=== PATIENT | male | born 1960 | race Caucasian/White ===

== ENCOUNTER 2022-05-07 15:41 | Emergency (ER) | payer BC, SELFPAY ==
[2022-05-07] VITALS (18 sets, daily range): BP systolic 133–149; BP diastolic 75–89; PULSE 69–104; TEMP 36.4; O2SAT 93–97; BMI 32.0
--- NOTE | 2022-05-07 16:06 | ED.NURSE ---
Bladder scan done, max read was ~60 mLs.
--- NOTE | 2022-05-07 16:57 | CRLHL7_ITS ---
For Patients: As a result of the Century Cures Act, medical imaging exams and procedure reports are released immediately into your electronic medical record. You may view this report before your referring provider. If you have questions, please contact your health care provider. INDICATION: Bilateral hydronephrosis TECHNIQUE: CT abdomen and pelvis acquired with 99 cc Isovue 370 IV contrast according to the renal protocol. COMPARISON: None. FINDINGS: Lower chest: The visualized lower lungs are aerated. No pleural or pericardial effusion. ABDOMEN: Liver: Normal enhancement. No focal suspicious hepatic lesions. Gallbladder and biliary: Normal gallbladder without radiopaque stone. Normal caliber bile ducts. Spleen: Normal size and enhancement. Pancreas: Normal enhancement without peripancreatic inflammatory changes or ductal dilatation. Adrenal glands: Normal adrenal glands. Kidneys and ureters: Normal enhancement. No radio-opaque calculi. No hydroureteronephrosis. Bilateral peripelvic cysts. Bilateral renal cysts. Suboptimal opacification of the distal renal collecting systems bilaterally however there are no abnormal areas of urothelial wall thickening or enhancement. GI tract: The stomach is relatively decompressed. Normal caliber small and large bowel loops. Normal appendix. Colonic diverticulosis without diverticulitis. Vascular structures: Normal caliber aorta with atherosclerotic calcifications. Lymph nodes: No lymphadenopathy in the abdomen or pelvis by size criteria. Peritoneum: No free air, free fluid, or focal drainable fluid collection. PELVIS: Genitourinary system: Suboptimal opacification of the urinary bladder, however there are no abnormal discrete bladder wall masses. Normal size prostate. Symmetric seminal vesicles. SKELETAL STRUCTURES AND SOFT TISSUES: Multilevel lumbar spondylosis. Bilateral SI joint arthrosis. IMPRESSION: Normal enhancement. No radio-opaque calculi. No hydroureteronephrosis. Bilateral peripelvic cysts. Bilateral renal cysts. Suboptimal opacification of the distal renal collecting systems bilaterally however there are no abnormal areas of urothelial wall thickening or enhancement. Please note that all CT scans at this facility use dose modulation, iterative reconstruction, and/or weight-based dosing when appropriate to reduce radiation dose to as low as reasonably achievable. Dictated by Agapito Cobb MD @ 05/07/2022 6:47:30 PM (Electronically Signed)
[2022-05-07 17:22] LABS: Appearance Urine Clear (Clear); Bilirubin Urine Negative (Negative); Blood Urine Negative (Negative); Color Urine Yellow (Yellow); Glucose Urine Negative (Negative); Ketones Urine Negative (Negative); Leukocyte Esterase Urine Negative (Negative); Nitrite Urine Negative (Negative); Protein Urine Negative (Negative); Specific Gravity Urine 1.025 (1.000-1.030); Urobilinogen Urine 0.2 (0.2-1.0); pH Urine 5.5 (5.0-8.5)
[2022-05-07 17:24] LABS: RBC Urine 0-2 (0-2); WBC Urine 0-2 (0-5)
--- NOTE | 2022-05-07 17:27 | ED_ITS ---
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 Looks like some transaminases were as high as 76. 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 He has not had any fevers recently. No complaints of pain other than does acknowledge some low back discomfort bilaterally. The ultrasound from today apparently showed moderate left and mild right hydronephrosis. Renal cyst as well. Hepatic steatosis which appears to be consistent with reported levels of transaminases. Clinical concern for ability to receive an urgent CT urogram therefore recommended to present to the emergency department. Mr. Matos does not complain of any pain. Mentioned only as above. He is not nauseated. He does not have any dysuria. Urinated twice last night. Does feel like he empties his bladder fully. Does have a history of nephrolithiasis. No new shortness of breath. No unusual lower extremity edema. Related Data Allergies Allergy/AdvReac Type Severity Reaction Status Date / Time No Known Drug Allergies Allergy Verified 05/07/22 15:59 Review of Systems Status of ROS: Reports: 10 or more systems reviewed and unremarkable except as noted in History and below PFSH PFS Social History Smoking Status: Never smoker Do you use any of these nicotine containing products: Smokeless Tobacco How often do you have a drink containing alcohol: 2-3 times a week How many standard drinks containing alcohol do you have on a typical day: 1 or 2 How often do you have six or more drinks on one occasion: Never AUDIT-C Alcohol total score: 3 Non-prescribed substance use: marijuana (any form) Exam Narrative: Exam Narrative: Pleasant. Of good energy. NAD. Skin is warm and dry. Has noted a skin over back in particular generally flushed. Otherwise yes, je in complexion. There is no scleral icterus. I do not appreciate jaundice on his person otherwise. Breathing easily. Lungs appear to be clear. Cranial nerves 2-12 look to be intact. Heart is with an elevated rate in a regular rhythm. Distant. Abdomen is overweight soft nontender. No HSM arm mass appreciated. There is a midline sacral cyst consistent with sebaceous cyst on his back which is not inflamed about a cm in diameter. Lower extremities are with trace dependent edema, Const: Vital Signs, click to edit/add: Vital Signs - 24 hr 05/07/22 15:54 05/07/22 16:14 05/07/22 16:15 Temperature 97.6 F Pulse Rate 90 104 H Pulse Rate [Pulse Oximeter] 96 Blood Pressure 149/85 H Blood Pressure [Ri ght Upper Arm] 134/75 Pulse Oximetry 96 95 96 Oxygen Delivery Me thod Room Air 05/07/22 16:16 05/07/22 16:30 05/07/22 16:31 Temperature Pulse Rate 93 90 92 Pulse Rate [Pulse Oximeter] Blood Pressure 133/80 Blood Pressure [Ri ght Upper Arm] Pulse Oximetry 95 94 93 Oxygen Delivery Me thod 05/07/22 16:32 05/07/22 17:00 05/07/22 17:01 Temperature Pulse Rate 95 87 87 Pulse Rate [Pulse Oximeter] Blood Pressure 147/89 H Blood Pressure [Ri ght Upper Arm] Pulse Oximetry 93 93 93 Oxygen Delivery Me thod 05/07/22 17:30 05/07/22 17:34 05/07/22 18:18 Temperature Pulse Rate 91 84 72 Pulse Rate [Pulse Oximeter] Blood Pressure Blood Pressure [Ri ght Upper Arm] Pulse Oximetry 94 94 96 Oxygen Delivery Me thod 05/07/22 18:30 05/07/22 18:33 05/07/22 18:34 Temperature Pulse Rate 79 76 78 Pulse Rate [Pulse Oximeter] Blood Pressure Blood Pressure [Ri ght Upper Arm] Pulse Oximetry 96 95 96 Oxygen Delivery Me thod 05/07/22 18:57 05/07/22 19:00 05/07/22 19:30 Temperature Pulse Rate 72 69 72 Pulse Rate [Pulse Oximeter] Blood Pressure 140/79 H Blood Pressure [Ri ght Upper Arm] Pulse Oximetry 95 96 97 Oxygen Delivery Me thod Documenting provider has reviewed patient's vital signs: yes Course Vital Signs Vital signs: Initial Vital Signs Temperature 97.6 F 05/07/22 15:54 Temperature Source Temporal Artery Scan 05/07/22 15:54 Pulse Rate 96 05/07/22 15:54 Blood Pressure 134/75 05/07/22 15:54 Blood Pressure Mean 94 05/07/22 15:54 Blood Pressure Position Sitting 05/07/22 15:54 Pulse Oximetry 96 05/07/22 15:54 Oxygen Delivery Method 05/07/22 15:54 Vital Signs Temperature 97.6 F 05/07/22 15:54 Pulse Rate 96 05/07/22 15:54 Blood Pressure 134/75 05/07/22 15:54 Pulse Oximetry 96 05/07/22 15:54 Oxygen Delivery Method 05/07/22 15:54 Temperature 97.6 F 05/07/22 15:54 Pulse Rate 72 05/07/22 19:30 Blood Pressure 140/79 H 05/07/22 18:57 Pulse Oximetry 97 05/07/22 19:30 Oxygen Delivery Method 05/07/22 15:54 Medical Decision Making MDM Narrative Medical decision making narrative: I did request a quick bladder scan. Only scans for 60 mL or so to the limitations of this particular scanner. I did call to talk with the cardiac clinic/nurse practitioner. Delineated in the HPI. Unclear the emergency here other than concern of inability to accomplish this through clinic. We will go ahead though and recheck labs of renal function given findings here an ultrasound and have requested a CT urogram. Will be receiving normal saline. Does not appear to have an obstructive uropathy from urinary retention/lots. Does not have pain to make one think of ureteral stone. Imaging pending. Labs with evidently resolved transaminases and renal function looks quite good. I did review CT urogram imaging demonstrating large right sided renal cyst and other parapelvic cysts. Hydronephrosis not demonstrated. IMPRESSION: Normal enhancement. No radio-opaque calculi. No hydroureteronephrosis. Bilateral peripelvic cysts. Bilateral renal cysts. Suboptimal opacification of the distal renal collecting systems bilaterally however there are no abnormal areas of urothelial wall thickening or enhancement. Lab Data Lab results reviewed: Yes I reviewed the patient's lab results Labs: Lab Results 05/07/22 05/07/22 05/07/22 Range/Units 17:10 17:25 17:25 WBC 8.74 (4.50-11.00) K/uL RBC 4.83 (4.30-5.90) m/uL Hgb 15.5 (13.5-17.5) gm/dL Hct 44.2 (37.0-53.0) % MCV 92 (80-100) fL MCH 32 (26-34) pg MCHC 35 (32-36) gm/dL RDW Coeff of [place] 13.1 (11.5-15.5) % Plt Count 207 (140-440) K/uL Neut % (Auto) 65.2 (42.0-72.0) % Lymph % (Auto) 22.3 (20-44) % Stevens % (Auto) 9.6 (0.0-11.0) % Eos % (Auto) 2.3 (0.0-7.0) % Baso % (Auto) 0.3 (0.0-3.0) % Neut # (Auto) 5.69 (1.7-7.0) K/uL Lymph # (Auto) 1.95 (0.90-2.90) K/uL Stevens # (Auto) 0.80 (0.00-0.90) K/UL Eos # (Auto) 0.20 (0.00-0.50) K/uL Baso # (Auto) 0.03 (0.00-0.30) K/uL Sodium 135 (135-149) mmol/L Potassium 3.7 (3.6-5.1) mmol/L Chloride 101 (96-114) mmol/L Carbon Dioxide 22 (20-32) mmol/L BUN 25 (7-30) mg/dL Creatinine 0.7 (0.5-1.5) mg/dL Estimated Creat Clear 74.63 Estimated GFR 103 ml/min Glucose 109 (60-115) mg/dL Calcium 9.6 (8.4-10.6) mg/dL Total Bilirubin 0.6 (0.1-1.5) mg/dL Direct Bilirubin 0.1 (0.0-0.5) mg/dL AST 24 (12-35) U/L ALT 45 (4-50) U/L Alkaline Phosphatase 47 (40-150) U/L C-Reactive Protein < 0.5 L (0.5-1.0) mg/dL Total Protein 7.6 (6.0-8.3) g/dL Albumin 4.8 (3.3-5.0) g/dL Urine Color Yellow (Yellow) Urine Appearance Clear (Clear) Urine pH 5.5 (5.0-8.5) Ur Specific [place] 1.025 (1.000-1.030) Urine Protein Negative (Negative) Urine Glucose (UA) Negative (Negative) Urine Ketones Negative (Negative) Urine Blood Negative (Negative) Urine Nitrite Negative (Negative) Urine Bilirubin Negative (Negative) Urine Urobilinogen 0.2 (0.2-1.0) Ur Leukocyte Esterase Negative (Negative) Urine RBC 0-2 (0-2) Urine WBC 0-2 (0-5) Ur Squamous Epith Cells None (None-Few) Urine Bacteria None (None) Ethyl Alcohol < 0.01 L (0.01-0.03) % POC Creatinine (0.6-1.3) mg/dl 05/07/22 Range/Units 17:31 WBC (4.50-11.00) K/uL RBC (4.30-5.90) m/uL Hgb (13.5-17.5) gm/dL Hct (37.0-53.0) % MCV (80-100) fL MCH (26-34) pg MCHC (32-36) gm/dL RDW Coeff of [place] (11.5-15.5) % Plt Count (140-440) K/uL Neut % (Auto) (42.0-72.0) % Lymph % (Auto) (20-44) % Stevens % (Auto) (0.0-11.0) % Eos % (Auto) (0.0-7.0) % Baso % (Auto) (0.0-3.0) % Neut # (Auto) (1.7-7.0) K/uL Lymph # (Auto) (0.90-2.90) K/uL Stevens # (Auto) (0.00-0.90) K/UL Eos # (Auto) (0.00-0.50) K/uL Baso # (Auto) (0.00-0.30) K/uL Sodium (135-149) mmol/L Potassium (3.6-5.1) mmol/L Chloride (96-114) mmol/L Carbon Dioxide (20-32) mmol/L BUN (7-30) mg/dL Creatinine (0.5-1.5) mg/dL Estimated Creat Clear Estimated GFR ml/min Glucose (60-115) mg/dL Calcium (8.4-10.6) mg/dL Total Bilirubin (0.1-1.5) mg/dL Direct Bilirubin (0.0-0.5) mg/dL AST (12-35) U/L ALT (4-50) U/L Alkaline Phosphatase (40-150) U/L C-Reactive Protein (0.5-1.0) mg/dL Total Protein (6.0-8.3) g/dL Albumin (3.3-5.0) g/dL Urine Color (Yellow) Urine Appearance (Clear) Urine pH (5.0-8.5) Ur Specific [place] (1.000-1.030) Urine Protein (Negative) Urine Glucose (UA) (Negative) Urine Ketones (Negative) Urine Blood (Negative) Urine Nitrite (Negative) Urine Bilirubin (Negative) Urine Urobilinogen (0.2-1.0) Ur Leukocyte Esterase (Negative) Urine RBC (0-2) Urine WBC (0-5) Ur Squamous Epith Cells (None-Few) Urine Bacteria (None) Ethyl Alcohol (0.01-0.03) % POC Creatinine 0.8 (0.6-1.3) mg/dl Discharge Plan Discharge Clinical Impression: Parapelvic renal cyst, Renal cyst Patient Disposition: Home, Self-Care Condition: Stable Additional Instructions: Please follow-up these findings with your primary care provider and/or urology in the next couple of weeks or so. It does look though as if your kidneys are functioning quite well. Follow Up/Referrals: Provider,Not a Local [Primary Care Provider] - Stand Alone Forms: [email or web address] Info Instructions
[2022-05-07 17:32] LABS: Creatinine, Point-of-Care* 0.8 mg/dl (0.6-1.3)
[2022-05-07 17:38] LABS: Basophils Absolute Auto 0.03 K/uL (0.00-0.30); Basophils Percent Auto 0.3 % (0.0-3.0); Eosinophils Percent Auto 2.3 % (0.0-7.0); Hematocrit 44.2 % (37.0-53.0); Hemoglobin* 15.5 gm/dL (13.5-17.5); Immature Granulocytes Abs Auto 0.03 K/uL (0.00-0.30); Immature Granulocytes Pct Auto 0.3 %; Lymphocytes Absolute Auto 1.95 K/uL (0.90-2.90); Lymphocytes Percent Auto 22.3 % (20-44); Mean Corpuscular HGB Conc 35 gm/dL (32-36); Mean Corpuscular Hemoglobin 32 pg (26-34); Mean Corpuscular Volume 92 fL (80-100); Monocytes Percent Auto 9.6 % (0.0-11.0); Neutrophils Absolute Auto 5.69 K/uL (1.7-7.0); Neutrophils Percent Auto 65.2 % (42.0-72.0); Platelet Count* 207 K/uL (140-440); RDW Coefficient of Variation % 13.1 % (11.5-15.5); Red Blood Count 4.83 m/uL (4.30-5.90); White Blood Count* 8.74 K/uL (4.50-11.00)
[2022-05-07 17:40] LABS: Slide Review Reflex No
[2022-05-07 17:50] LABS: Albumin* 4.8 g/dL (3.3-5.0); Chloride* 101 mmol/L (96-114); Sodium* 135 mmol/L (135-149)
[2022-05-07 17:51] LABS: Potassium* 3.7 mmol/L (3.6-5.1)
[2022-05-07 17:52] LABS: Creatinine* 0.7 mg/dL (0.5-1.5); Est. Creatinine Clearance* 74.63; Estimated Glomerular Filt Rate 103 ml/min
[2022-05-07 17:53] LABS: Alkaline Phosphatase* 47 U/L (40-150); Aspartate Amino Transferase* 24 U/L (12-35); Bilirubin Direct* 0.1 mg/dL (0.0-0.5); Bilirubin Total* 0.6 mg/dL (0.1-1.5); Blood Urea Nitrogen* 25 mg/dL (7-30); Carbon Dioxide* 22 mmol/L (20-32); Total Protein* 7.6 g/dL (6.0-8.3)
[2022-05-07 17:54] LABS: Alanine Aminotransferase* 45 U/L (4-50); Calcium* 9.6 mg/dL (8.4-10.6); Glucose* 109 mg/dL (60-115)
[2022-05-07 18:15] LABS: C Reactive Protein* < 0.5 mg/dL (0.5-1.0); Ethanol* < 0.01 % (0.01-0.03)
== END 2022-05-07 20:20 | disposition home or self-care (01) ==
PROVIDERS: Emergency Provider Family Medicine
DX: N28.1 Cyst of kidney, acquired (principal)
CPT/HCPCS: 36415; 74178; 80048; 80076; 81001; 82077; 82565; 85025; 86140; 99284; Q9967